=== PATIENT | female | born 1985 | race Caucasian/White ===

== ENCOUNTER → 2016-05-27 | Outpatient (CLI) | payer SELFPAY ==
[~2016-05-27] MED LIST: ADVIL200 MG PO; AMOXICILLIN 50500 MG PO; APRESOLINE; BACTRIM DS 8001 TAB PO; BENADRYL25 MG PO; CELEXA10 MG PO; CEPHALEXIN500 M1 PO; DIFLUCAN 100MG100 MG PO; DORYX100 PO; DOXYCYCLINE 10100 MG PO; ETHINYL ESTRADIOL; FLAGYL500 MG PO; FLEXERIL10 MG PO; HCTZ 25MG25 MG PO; K-TAB10 PO; KLOR-CON M2020 MEQ PO; LOMOTIL 0.025 M1 TAB PO; LOPRESSOR 225 MG/TAB PO; LORTAB 5/500 501 TAB PO; LORTAB 7.5/5001 TAB PO; LOTRISONE TP; LOVENOX 100100 MG/ML SQ; LOVENOX120 MG/0.8 SC; MAG-OX 400400 MG/TAB PO; MEDROL2 M1 PO; MIRENA52 MG IU; NAPROSYN500 MG PO; NO HOME MEDICATIONS; NORCO 325 MG-51 TAB; NORCO 325 MG-51 TAB PO; NORCO 325 MG-7.1 TAB PO; NORGESTIMATE; OMNICEF 300MG300 MG PO; PERCOCET 325 MG1 TA2 PO; PHENERGAN 25 TA25 MG PO; POLYMYXIN B/TRIMETH OU; PREDNISONE20 MG PO; PRENATAL 1 VITA1 TAB PO; PRINIVIL5 MG PO; PRINZIDE 12.5 M1 TA1 PO; PRINZIDE 12.5 M1 TAB PO; REGLAN 10MG10 MG/TAB PO; SUDAFED60 MG PO; TOPROL XL 25MG25 MG PO; TUSS PO; TYLENOL W/COD1 UDTAB PO; ULTRAM 50MG TAB50 MG PO; URSO250 MG PO; XARELTO STARTER20 MG PO; XARELTO15 MG PO; ZESTORETIC 12.51 TAB PO; ZESTRIL 10MG10 MG PO; ZITHROMAX 250M250 MG PO; ZOFRAN ODT4 MG PO; ZOFRAN8 MG PO; ZOVIRAX 200MG200 MG PO; [UNRECOGNIZED DRUG - REMARK] PO
== END ==
LOC: MC.RAD 11:08
DX: Z12.31 Encounter for screening mammogram for malignant neoplasm of breast (principal); Z85.3 Personal history of malignant neoplasm of breast; I10 Essential (primary) hypertension; Z92.21 Personal history of antineoplastic chemotherapy
CPT/HCPCS: G0202

== ENCOUNTER → 2016-06-10 | Outpatient (CLI) | payer SELFPAY | LOC: MC.RAD 06-06 10:20 | DX: Z12.31 Encounter for screening mammogram for malignant neoplasm of breast (principal); N63 Unspecified lump in breast; Z85.3 Personal history of malignant neoplasm of breast; Z92.3 Personal history of irradiation ==

== ENCOUNTER 2016-11-05 22:49 | Emergency (ER) | payer SELFPAY ==
[~2016-11-05] VITALS: Ht 165.1 cm; Wt 122.7 kg
[~2016-11-05 22:49] MED LIST changes: -K-TAB10 PO; -LOVENOX 100100 MG/ML SQ; -URSO250 MG PO; -ZOVIRAX 200MG200 MG PO
[2016-11-05 22:54] VITALS: TEMP 97.9
[2016-11-05 23:38] LABS: MEAN CELL VOLUME 83 fl (80.0-100.0); MEAN CORPUSCULAR HGB CONC 35 g/dl (33.0-37.0); MEAN PLATELET VOLUME 10.9 fl (7.4-10.4); RED BLOOD COUNT 2.48 M/mm3 (4.10-5.30); WHITE BLOOD COUNT 2.4 K/mm3 (4.8-10.8)
[2016-11-05 23:46] LABS: HEMATOCRIT 20.6 % (37.0-47.0); HEMOGLOBIN 7.1 g/dl (12.5-16.0); MEAN CORPUSCULAR HEMOGLOBIN 29 pg (27.0-31.0)
[2016-11-05 23:48] LABS: PH 5 (5-8); URINE APPEARANCE Hazy; URINE BACTERIA None Seen /hpf; URINE BILIRUBIN Negative (NEGATIVE); URINE BLOOD Negative (NEGATIVE); URINE COLOR Yellow; URINE GLUCOSE Negative (NEGATIVE); URINE KETONE Negative (NEGATIVE); URINE RBC None Seen /hpf; URINE UROBILINOGEN Negative (NEGATIVE); URINE WBC 0-2 /hpf
[2016-11-05 23:49] LABS: ADJUSTED CALCIUM 9.2 mg/dL (8.4-10.2); ALANINE AMINOTRANSFERASE 33 U/L (9-52); ALBUMIN 3.9 gm/dL (3.5-5.0); ALKALINE PHOSPHATASE 56 U/L (50-136); ANION GAP 10 mmol/L (7-16); BILIRUBIN,TOTAL 0.8 mg/dL (0.0-1.0); BLOOD UREA NITROGEN 17 mg/dL (7-17); C-REACTIVE PROTEIN 2.2 mg/dL (0.0-0.9); CALCIUM 9.1 mg/dL (8.4-10.2); CARBON DIOXIDE 23 mmol/L (22-30); CHLORIDE 103 mmol/L (98-107); CREATININE, serum 0.95 mg/dL (0.52-1.25); GLUCOSE 103 mg/dL (74-106); LIPASE 63 U/L (23-300); PLATELET COUNT 33 K/mm3 (130-400); POTASSIUM 3.8 mmol/L (3.4-5.0); SODIUM 137 mmol/L (137-145); TOTAL PROTEIN 6.5 gm/dL (6.4-8.2)
[2016-11-05 23:50] LABS: ADD PATHOLOGY DIFF REVIEW NO
[2016-11-05 23:58] LABS: B-TYPE NATRIURETIC PEPTIDE 269 pg/mL (0-125); TROPONIN-I < 0.012 ng/mL (0.000-0.034)
[2016-11-05 23:59] LABS: ANISOCYTOSIS 1+; BAND 3 % (0-10); EOSINOPHIL 2 % (0-4); NEUTROPHILS 34 % (42.0-75.2); PLATELET ESTIMATE DECREASED (NORMAL); POIKILOCYTOSIS 1+; POLYCHROMASIA 1+; TOTAL CELLS COUNTED 101
[2016-11-06] LABS: MICROCYTOSIS 2+; STOMATOCYTE 1+
[2016-11-06 00:09] LABS: ERYTHROCYTE SEDIMENTATION RATE 40 mm/hr (0-20)
[2016-11-06 01:15] VITALS: BP 137/88; PULSE 82
== END 2016-11-06 01:15 | disposition home or self-care (01) ==
LOC: COL.ER 22:49
PROVIDERS: Emergency Medicine
DX: D61.818 Other pancytopenia (principal); R53.83 Other fatigue; Z85.3 Personal history of malignant neoplasm of breast; Z90.49 Acquired absence of other specified parts of digestive tract; Z86.718 Personal history of other venous thrombosis and embolism
CPT/HCPCS: J7030; Q9967

== ENCOUNTER 2016-11-18 06:50 | Outpatient (CLI) | payer SELFPAY ==
[~2016-11-18] VITALS: Ht 165.1 cm; Wt 120.1 kg
[2016-11-18] MEDS ORDERED: ADVIL200 MG PO (07:34)
[2016-11-18 09:59] VITALS: BP 123/85; PULSE 78
[2016-11-18 10:11] VITALS: BP 127/81; PULSE 83
[2016-11-18 10:45] VITALS: BP 102/68; PULSE 76
[2016-11-18 11:00] VITALS: BP 106/63; PULSE 78
[2016-11-18 11:15] VITALS: BP 114/72; PULSE 72
[2016-11-18 11:40] LABS: MEAN CELL VOLUME 85 fl (80.0-100.0); MEAN CORPUSCULAR HGB CONC 35 g/dl (33.0-37.0); MEAN PLATELET VOLUME 9.9 fl (7.4-10.4); RED BLOOD COUNT 2.08 M/mm3 (4.10-5.30)
[2016-11-18 11:45] VITALS: BP 105/77; PULSE 86
[2016-11-18 12:08] LABS: HEMATOCRIT 17.6 % (37.0-47.0); HEMOGLOBIN 6.2 g/dl (12.5-16.0); MEAN CORPUSCULAR HEMOGLOBIN 30 pg (27.0-31.0); WHITE BLOOD COUNT 1.4 K/mm3 (4.8-10.8)
[2016-11-18 12:09] LABS: PLATELET COUNT 32 K/mm3 (130-400)
[2016-11-18 12:50] LABS: ADD PATHOLOGY DIFF REVIEW NO
[2016-11-18 13:05] LABS: BAND 9 % (0-10); EOSINOPHIL 5 % (0-4); METAMYELOCYTE 1 % (0-0); NEUTROPHILS 12 % (42.0-75.2); PLATELET ESTIMATE DECREASED (NORMAL); TOTAL CELLS COUNTED 100
[2016-11-18 13:06] LABS: TEAR DROP CELLS 1+
== END 2016-11-18 12:07 | disposition home or self-care (01) ==
LOC: SDCO 06:50
PROVIDERS: Pathology Anatomic Pathology & Clinical Pathology
DX: D61.818 Other pancytopenia (principal); G43.109 Migraine with aura, not intractable, without status migrainosus; D64.9 Anemia, unspecified; F32.9 Major depressive disorder, single episode, unspecified; Z85.3 Personal history of malignant neoplasm of breast; Z68.41 Body mass index [BMI] 40.0-44.9, adult; Z92.21 Personal history of antineoplastic chemotherapy; Z90.49 Acquired absence of other specified parts of digestive tract
CPT/HCPCS: J2704; J3010; J7120

== ENCOUNTER → 2016-11-20 | Emergency (ER) | payer SELFPAY ==
[~2016-11-20] VITALS: Ht 165.1 cm; Wt 119.5 kg
[~2016-11-20] MED LIST changes: +K-TAB10 PO; +LOVENOX 100100 MG/ML SQ; +URSO250 MG PO; +ZOVIRAX 200MG200 MG PO
[2016-11-20 15:57] VITALS: TEMP 98
[2016-11-20 17:43] LABS: MEAN CELL VOLUME 85 fl (80.0-100.0); MEAN CORPUSCULAR HGB CONC 35 g/dl (33.0-37.0); MEAN PLATELET VOLUME 10.3 fl (7.4-10.4); RED BLOOD COUNT 1.96 M/mm3 (4.10-5.30); REDCELL DISTRIBUTION WIDTH-CV 16.1 % (11.5-14.5)
[2016-11-20 17:47] LABS: INR 1.2 (0.8-3.0); PROTHROMBIN TIME 13.7 SECONDS (9.7-12.8)
[2016-11-20 17:49] LABS: PARTIAL THROMBOPLASTIN TIME 25.6 SECONDS (26.0-37.0)
[2016-11-20 17:54] LABS: ADJUSTED CALCIUM 8.8 mg/dL (8.4-10.2); ALANINE AMINOTRANSFERASE 39 U/L (9-52); ALBUMIN 3.9 gm/dL (3.5-5.0); ALKALINE PHOSPHATASE 52 U/L (50-136); ANION GAP 12 mmol/L (7-16); BILIRUBIN,TOTAL 1.2 mg/dL (0.0-1.0); BLOOD UREA NITROGEN 15 mg/dL (7-17); CALCIUM 8.7 mg/dL (8.4-10.2); CARBON DIOXIDE 24 mmol/L (22-30); CHLORIDE 101 mmol/L (98-107); CREATININE, serum 0.83 mg/dL (0.52-1.25); GLUCOSE 96 mg/dL (74-106); MAGNESIUM 1.6 mg/dL (1.6-2.3); PHOSPHOROUS 3.8 mg/dL (2.5-4.5); POTASSIUM 3.8 mmol/L (3.4-5.0); SODIUM 136 mmol/L (137-145); TOTAL PROTEIN 6.7 gm/dL (6.4-8.2)
[2016-11-20 17:55] LABS: HEMATOCRIT 16.7 % (37.0-47.0); HEMOGLOBIN 5.8 g/dl (12.5-16.0); MEAN CORPUSCULAR HEMOGLOBIN 30 pg (27.0-31.0); PLATELET COUNT 33 K/mm3 (130-400)
[2016-11-20 17:59] LABS: PH 5 (5-8); SQUAMOUS EPITHELIAL 20-50 /hpf; URINE APPEARANCE Hazy; URINE BACTERIA Rare /hpf; URINE BILIRUBIN Negative (NEGATIVE); URINE BLOOD 2+ (NEGATIVE); URINE COLOR Yellow; URINE GLUCOSE Negative (NEGATIVE); URINE KETONE Negative (NEGATIVE); URINE RBC 0-2 /hpf; URINE UROBILINOGEN Negative (NEGATIVE)
[2016-11-20 18:05] LABS: B-TYPE NATRIURETIC PEPTIDE 261 pg/mL (0-125)
[2016-11-20 18:06] LABS: TROPONIN-I < 0.012 ng/mL (0.000-0.034)
[2016-11-20 18:43] LABS: BAND 16 % (0-10); MYELOCYTE 5 % (0-0); NEUTROPHILS 14 % (42.0-75.2); PLATELET ESTIMATE DECREASED (NORMAL); TOTAL CELLS COUNTED 100
[2016-11-20 18:44] LABS: ADD PATHOLOGY DIFF REVIEW YES; ANISOCYTOSIS 1+; HYPOCHROMIA 1+; MICROCYTOSIS 1+
[2016-11-20 21:20] VITALS: BP 125/93; PULSE 107
[2016-11-21 08:35] LABS: PATHOLOGY DIFF REVIEW OK +
== END ==
LOC: COL.ER 15:55
PROVIDERS: Emergency Medicine
DX: D61.818 Other pancytopenia (principal); C95.90 Leukemia, unspecified not having achieved remission; Z85.3 Personal history of malignant neoplasm of breast; Z90.49 Acquired absence of other specified parts of digestive tract
CPT/HCPCS: J7030; J7040

== ENCOUNTER 2017-01-10 08:30 | Outpatient (RCR) | payer SELFPAY ==
[2016-11-06 18:44] LABS: LACTATE DEHYDROGENASE 1989 U/L (313-618)
[2016-11-06 19:00] LABS: TOTAL IRON BINDING CAPACITY 320 ug/dL (265-497)
[2016-11-06 19:21] LABS: FERRITIN 468 ng/mL (6-137)
[2016-11-07] VITALS (10 sets, daily range): BP systolic 110–143; BP diastolic 71–84; PULSE 83–100; TEMP 98.1–98.9
[2016-11-07 23:39] LABS: ANA SCREEN with REFLEX Negative (Negative)
[2016-11-08 10:22] LABS: HAPTOGLOBIN 132 mg/dL (36-195)
[~2017-01-10] VITALS: Ht 165.1 cm; Wt 110.0 kg
[~2017-01-10 08:30] MED LIST changes: -K-TAB10 PO; -LOVENOX 100100 MG/ML SQ; -URSO250 MG PO; -ZOVIRAX 200MG200 MG PO
[2017-01-10] MEDS ORDERED: URSO250 MG PO (08:31)
[2017-01-10] MEDS ORDERED: K-TAB10 PO (08:31)
[2017-01-10] MEDS ORDERED: LOVENOX 100100 MG/ML SQ (08:32)
[2017-01-10] MEDS ORDERED: ZOVIRAX 200MG200 MG PO (08:32)
[2017-01-10 08:48] VITALS: BP 147/108; PULSE 82; TEMP 97.5
== END 2017-02-04 ==
LOC: EUO
PROVIDERS: Internal Medicine
DX: C55 Malignant neoplasm of uterus, part unspecified (principal); Z79.899 Other long term (current) drug therapy
CPT/HCPCS: J1644; J7050; P9040

== ENCOUNTER → 2017-01-17 | Outpatient (CLI) | payer MEDICAID ==
[~2017-01-17] MED LIST changes: +K-TAB10 PO; +LOVENOX 100100 MG/ML SQ; +URSO250 MG PO; +ZOVIRAX 200MG200 MG PO
== END ==
LOC: MC.RAD 07:40
DX: Z08 Encounter for follow-up examination after completed treatment for malignant neoplasm (principal); Z85.3 Personal history of malignant neoplasm of breast; Z98.82 Breast implant status; Z90.10 Acquired absence of unspecified breast and nipple

== ENCOUNTER 2017-07-20 12:29 | Emergency (ER) | payer MEDICAID ==
[~2017-07-20] VITALS: Ht 165.1 cm; Wt 102.3 kg
[2017-07-20 12:33] VITALS: TEMP 98.6
[2017-07-20 13:32] LABS: BASO % 0.2 % (0.0-2.0); EOS # 0.2 (0.0-0.7); EOS % 3.7 % (0-4.0); GRAN # 4.4 (1.4-6.5); GRAN % 74.2 % (42.2-75.2); HEMATOCRIT 41.1 % (37.0-47.0); HEMOGLOBIN 13.3 g/dl (12.5-16.0); LYMPH # 0.9 (1.2-3.4); LYMPH % 14.5 % (20.0-51.0); MEAN CELL VOLUME 86 fl (80.0-100.0); MEAN CORPUSCULAR HEMOGLOBIN 28 pg (27.0-31.0); MEAN CORPUSCULAR HGB CONC 32 g/dl (33.0-37.0); MONO # 0.4 (0.1-0.6); MONO % 7.1 % (1.7-9.3); PLATELET COUNT 228 K/mm3 (130-400); RED BLOOD COUNT 4.79 M/mm3 (4.10-5.30); REDCELL DISTRIBUTION WIDTH-CV 13.9 % (11.5-14.5)
[2017-07-20 13:46] LABS: ALBUMIN 3.8 gm/dL (3.5-5.0); BILIRUBIN,TOTAL 0.6 mg/dL (0.0-1.0); C-REACTIVE PROTEIN 2.3 mg/dL (0.0-0.9); CALCIUM 9.3 mg/dL (8.4-10.2); CREATININE, serum 0.64 mg/dL (0.52-1.25); POTASSIUM 3.2 mmol/L (3.4-5.0); TOTAL PROTEIN 6.4 gm/dL (6.4-8.2)
[2017-07-20] MEDS ORDERED: NORVASC 10MG10 MG PO (13:51)
[2017-07-20] MEDS ORDERED: MAG-OX 400400 MG/TAB PO (13:52)
[2017-07-20] MEDS ORDERED: COMPAZINE 110 MG/TAB PO ×2 (13:53→15:25)
[2017-07-20] MEDS ORDERED: ZOFRAN8 MG PO (13:53)
[2017-07-20] MEDS ORDERED: PROGRAF 0.5MG0.5 MG PO (13:53)
[2017-07-20] MEDS ORDERED: PROGRAF 1MG1 MG PO (13:54)
[2017-07-20] MEDS ORDERED: ULTRAM 50MG TAB50 MG PO (13:54)
[2017-07-20] MEDS ORDERED: BACTRIM DS 8001 TAB PO (13:56)
[2017-07-20 14:59] LABS: COLLECTION METHOD CLEAN CATCH
[2017-07-20 15:07] LABS: PH 7 (5-8); SQUAMOUS EPITHELIAL 0-2 /hpf; URINE APPEARANCE Clear; URINE BACTERIA None Seen /hpf; URINE BILIRUBIN Negative (NEGATIVE); URINE BLOOD Negative (NEGATIVE); URINE COLOR Straw; URINE GLUCOSE Negative (NEGATIVE); URINE KETONE Negative (NEGATIVE); URINE LEUKOCYTE ESTERASE Negative (NEGATIVE); URINE NITRATE Negative (NEGATIVE); URINE PROTEIN(semi-quant) Negative (NEGATIVE); URINE RBC 0-2 /hpf; URINE UROBILINOGEN Negative (NEGATIVE)
[2017-07-20 15:46] VITALS: BP 161/106; PULSE 83
== END 2017-07-20 15:49 | disposition home or self-care (01) ==
LOC: COL.ER 12:29
PROVIDERS: Physician Assistant
DX: G43.909 Migraine, unspecified, not intractable, without status migrainosus (principal); I10 Essential (primary) hypertension; Z85.3 Personal history of malignant neoplasm of breast; Z94.81 Bone marrow transplant status
CPT/HCPCS: J1200; J1885; J2765; J7030

== ENCOUNTER 2017-07-26 02:38 | Emergency (ER) | payer MEDICAID ==
[~2017-07-26] VITALS: Ht 165.1 cm; Wt 102.3 kg
[~2017-07-26 02:38] MED LIST changes: +COMPAZINE 110 MG/TAB PO; +NORVASC 10MG10 MG PO; +PROGRAF 0.5MG0.5 MG PO; +PROGRAF 1MG1 MG PO
[2017-07-26 03:26] LABS: BASO % 0.4 % (0.0-2.0); EOS # 0.5 (0.0-0.7); EOS % 4.7 % (0-4.0); GRAN # 8.6 (1.4-6.5); GRAN % 77.4 % (42.2-75.2); HEMOGLOBIN 13.1 g/dl (12.5-16.0); LYMPH # 1.1 (1.2-3.4); LYMPH % 10.1 % (20.0-51.0); MEAN CELL VOLUME 86 fl (80.0-100.0); MEAN CORPUSCULAR HEMOGLOBIN 28 pg (27.0-31.0); MEAN CORPUSCULAR HGB CONC 33 g/dl (33.0-37.0); MEAN PLATELET VOLUME 11.6 fl (7.4-10.4); MONO # 0.8 (0.1-0.6); PLATELET COUNT 196 K/mm3 (130-400); RED BLOOD COUNT 4.67 M/mm3 (4.10-5.30); REDCELL DISTRIBUTION WIDTH-CV 14.1 % (11.5-14.5)
[2017-07-26 03:39] LABS: ALBUMIN 3.7 gm/dL (3.5-5.0); BILIRUBIN,TOTAL 0.4 mg/dL (0.0-1.0); C-REACTIVE PROTEIN 1.5 mg/dL (0.0-0.9); CALCIUM 9.4 mg/dL (8.4-10.2); CREATININE, serum 0.67 mg/dL (0.52-1.25); POTASSIUM 3.5 mmol/L (3.4-5.0); TOTAL PROTEIN 6.4 gm/dL (6.4-8.2)
[2017-07-26 06:35] LABS: COLLECTION METHOD CLEAN CATCH
[2017-07-26 06:40] LABS: PH 7 (5-8); SQUAMOUS EPITHELIAL 0-2 /hpf; URINE APPEARANCE Clear; URINE BACTERIA None Seen /hpf; URINE BILIRUBIN Negative (NEGATIVE); URINE BLOOD Negative (NEGATIVE); URINE COLOR Colorless; URINE GLUCOSE Negative (NEGATIVE); URINE KETONE Negative (NEGATIVE); URINE LEUKOCYTE ESTERASE Negative (NEGATIVE); URINE NITRATE Negative (NEGATIVE); URINE PROTEIN(semi-quant) Negative (NEGATIVE); URINE RBC 0-2 /hpf; URINE UROBILINOGEN Negative (NEGATIVE)
[2017-07-26 07:49] VITALS: TEMP 100.6
[2017-07-26 08:35] VITALS: BP 156/116; PULSE 119
== END 2017-07-26 08:49 | disposition short-term general hospital (02) ==
LOC: COL.ER 02:38
PROVIDERS: Emergency Medicine
DX: K52.9 Noninfective gastroenteritis and colitis, unspecified (principal); R50.9 Fever, unspecified; Z94.81 Bone marrow transplant status; I10 Essential (primary) hypertension; Z90.49 Acquired absence of other specified parts of digestive tract; Z85.3 Personal history of malignant neoplasm of breast
CPT/HCPCS: J0692; J0780; J2270; J2405; J3010; J7030; Q9967

== ENCOUNTER 2017-08-02 09:26 | Emergency (ER) | payer MEDICAID ==
[~2017-08-02] VITALS: Ht 165.1 cm; Wt 81.8 kg
[2017-08-02 09:54] VITALS: TEMP 99.7
[2017-08-02] MEDS ORDERED: NORVASC 10MG10 MG PO (09:58)
[2017-08-02 10:52] LABS: MEAN CELL VOLUME 83 fl (80.0-100.0); MEAN CORPUSCULAR HGB CONC 34 g/dl (33.0-37.0); MEAN PLATELET VOLUME 11.6 fl (7.4-10.4); PLATELET COUNT 376 K/mm3 (130-400); RED BLOOD COUNT 6.61 M/mm3 (4.10-5.30); REDCELL DISTRIBUTION WIDTH-CV 15.3 % (11.5-14.5)
[2017-08-02 10:56] LABS: HEMATOCRIT 54.6 % (37.0-47.0); HEMOGLOBIN 18.3 g/dl (12.5-16.0); MEAN CORPUSCULAR HEMOGLOBIN 28 pg (27.0-31.0)
[2017-08-02 11:00] LABS: INR 1.5 (0.8-3.0); PROTHROMBIN TIME 17.4 SECONDS (9.7-12.8)
[2017-08-02 11:02] LABS: PARTIAL THROMBOPLASTIN TIME 33.4 SECONDS (26.0-37.0)
[2017-08-02 11:03] LABS: ALBUMIN 3.7 gm/dL (3.5-5.0); BILIRUBIN,TOTAL 0.7 mg/dL (0.0-1.0); CALCIUM 9.5 mg/dL (8.4-10.2); CREATININE, serum 3.42 mg/dL (0.52-1.25); POTASSIUM 5.1 mmol/L (3.4-5.0); TOTAL PROTEIN 7.8 gm/dL (6.4-8.2)
[2017-08-02 11:19] LABS: BAND 12 % (0-10); EOSINOPHIL 1 % (0-4); LYMPHOCYTE 4 % (20.0-51.0); NEUTROPHILS 79 % (42.0-75.2); PLATELET ESTIMATE NORMAL (NORMAL)
[2017-08-02 11:50] VITALS: BP 89/67; PULSE 135
[2017-08-02 12:11] LABS: COLLECTION METHOD CLEAN CATCH
[2017-08-02 12:47] LABS: AMORPHOUS CRYSTAL Present /uL; MUCOUS Present /lpf; PH 5 (5-8); URINE APPEARANCE Turbid; URINE BACTERIA Rare /hpf; URINE BILIRUBIN Positive (NEGATIVE); URINE BLOOD Negative (NEGATIVE); URINE COLOR Amber; URINE GLUCOSE 1+ (NEGATIVE); URINE KETONE Negative (NEGATIVE); URINE LEUKOCYTE ESTERASE 1+ (NEGATIVE); URINE NITRATE Negative (NEGATIVE); URINE PROTEIN(semi-quant) 2+ (NEGATIVE); URINE UROBILINOGEN >=4.0 mg/dL (NEGATIVE)
== END 2017-08-02 12:00 | disposition short-term general hospital (02) ==
LOC: COL.ER 09:26
PROVIDERS: Emergency Medicine
DX: C95.90 Leukemia, unspecified not having achieved remission (principal); N19 Unspecified kidney failure; Z94.81 Bone marrow transplant status
CPT/HCPCS: J0692; J2270; J2405; J7030